=== PATIENT | female | born 1960 | race Caucasian/White ===

== ENCOUNTER 2020-10-29 19:28 | Emergency (ER) | payer OTHER, SELFPAY ==
[2020-10-29 19:41] VITALS: BP 146/93; PULSE 75; RESP 16; TEMP 36.6; O2SAT 97; BMI 31.7
--- NOTE | 2020-10-29 19:45 | XRR_ITS ---
PROCEDURE INFORMATION: Exam: XR Left Hand Exam date and time: 10/29/2020 8:13 PM Age: 60 years old Clinical indication: Injury or trauma; Other: Smashed; Crushing; Left; Little finger; Injury date: 10/29/20; Injury details: PT dropped a piece of wood on 5th digit TECHNIQUE: Imaging protocol: XR Left hand. Views: 3 or more views. COMPARISON: No relevant prior studies available. FINDINGS: Bones/joints: Comminuted displaced fracture through the distal tuft of the left 5th finger. The other bones are intact. Mild degenerative changes in the interphalangeal joints. Severe degenerative changes in the 1st carpometacarpal joint. Bandage material on the 5th finger. Soft tissues: Normal. XR/XR hand LT min 3V* [id number] IMPRESSION: Comminuted left 5th tuft fracture.
--- NOTE | 2020-10-29 20:13 | W.ED.EXTPRO ---
HPI - Extremity Problem General: Chief complaint: Extremity Injury, Upper Stated complaint: crushed finger Time Seen by Provider: 10/29/20 20:01 History of Present Illness: HPI Narrative: Patient is a 60-year-old female comes to the ED with a finger injury. Patient says she was lifting some on firewood earlier today and one rolled and smashed the tip of fifth digit on left hand. Nail is avulsed. Patient says she is not up-to-date on her tetanus. Patient says she is not in much pain and does not need any pain medications. Associated symptoms: Deny chest pain, fever(s) or rash Review of Systems Const: Denies: fever(s), chills or fatigue Eyes: Denies: change in vision or eye discomfort ENMT: Denies: throat pain, odynophagia, nasal discharge or nasal congestion Card: Denies: chest pain, palpitations, edema, swelling of feet/ankles, dyspnea on exertion or orthopnea Resp: Denies: dyspnea, productive cough or non-productive cough GI: Denies: abdominal pain, nausea, vomiting, diarrhea, constipation or hematochezia : Denies: flank pain, dysuria or hematuria Musc: Denies: neck pain, back pain or extremity swelling Skin/Breast: Reports: new lesions (Left hand fifth digit injury involving nailbed.); Denies: rash Neuro: Denies: headache(s), numbness in extremities or weakness in extremities Physical Exam Const: COMMON NORMALS: no acute distress, patient oriented x3 and alert GENERAL APPEARANCE: cooperative and comfortable HENMT: COMMON NORMALS: normocephalic HEAD & SCALP: normocephalic MOUTH: Normal oral and palatal mucosa present THROAT: posterior oropharynx normal and uvula midline Neck/C-Spine: COMMON NORMALS: supple GENERAL: Yes normal visual inspection Resp: COMMON NORMALS: normal respiratory effort, No retractions, No use of accessory muscles and clear to auscultation bilaterally AUSCULTATION: clear to auscultation bilaterally Cardio: COMMON NORMALS: regular rate, regular rhythm, S1 normal heart sound present, S2 normal heart sound present, No gallops present (Cardio), No clicks present (Cardio), No murmurs present (Cardio) and Peripheral pulses 2+ throughout RATE: regular rate RHYTHM: regular rhythm HEART SOUNDS: S1 normal heart sound present and S2 normal heart sound present PERIPHERAL PULSES: Peripheral pulses 2+ throughout GI: COMMON NORMALS: Normal to inspection, nondistended, normoactive bowel sounds present, Soft to palpation, non-tender and no masses PALPATION: Yes Soft to palpation : COMMON NORMALS: Yes no CVA tenderness BLADDER/KIDNEY EXAM: Yes no CVA tenderness Back/Pelvis: COMMON NORMALS: no CVA tenderness Extremity: GENERAL: Yes normal exam except as noted LEFT UPPER EXTREMITY: Yes hand & digits Left hand and digits: Yes inspection (Fifth digit?avulsion of nail with lac lateral edge of nail bed and paronych), Yes palpation (Tenderness on palpation of distal fingertip fifth digit.), Yes ROM (Full range of motion) and Yes neurovascular exam (Intact) Neuro: COMMON NORMALS: patient oriented x3 and moves all extremities SENSORIUM/ORIENTATION: Yes alert Skin: GENERAL SKIN EXAM: dry skin Procedures Laceration Laceration 1: Site: hand (5th digit) Side (If applicable): left Size (cm): 0.5 Description: other (avulsed nail with germinal matrix intact?2 sutures used to attach matrix to sulcus then 2 sutures for nailbed and paronychia black) Depth: simple, single layer Local Anesthetic: lidocaine 2% (Digital block) Amount of anesthesia used (mL): 10 Pre-repair: irrigated extensively (With normal saline.) Skin layer closed with: vicryl (Absorbable sutures used) Size (cm): 4-0 Number of sutures: 4 Technique: simple, interrupted and other (2 sutures used to attach nail matrix to the sulcus of nail. 2 sutures to close nailbed laceration and bronchiolitis) Nerve Block Nerve Block 1: Time out performed: Yes Local Anesthetic: lidocaine 2% Amount of anesthesia used (mL): 10 Side: left Nerve Blocks: digital (Fifth digit) Procedure Successful: Yes Patient Tolerated Procedure: well Complications: none Course Vital Signs: Vital signs: Vital Signs Temperature 97.9 F 10/29/20 19:41 Pulse Rate 64 10/29/20 22:34 Respiratory Rate 14 10/29/20 22:34 Blood Pressure 113/76 10/29/20 22:34 Pulse Oximetry 95 10/29/20 22:34 MDM - Extremity (Nontraumatic) MDM Narrative: Medical decision making narrative: Patient is a 60-year-old female comes to the ED with of smash injury to fingertip of fifth digit on left hand. Nail is avulsed. X-ray was performed and showed a tuft fracture and fifth digit of left hand. Nerve block on fifth digit was performed with lidocaine 2%. I irrigated the nail avulsion extensively with normal saline. I then used 2 absorbable sutures and attached the nail matrix to the sulcus. I also used 2 more absorbable sutures to repair lateral nailbed laceration. Patient was given updated tetanus shot. She was then bandaged and put in a finger splint. She was sent home with a prescription for cephalexin. In order with case management for patient to be referred to orthopedic doctor was made. Return to ED precautions given. Patient was instructed on how to care for laceration. Patient understood and agreed with plan. Imaging Data^: Xray Ortho: Attestation: I personally reviewed and interpreted this imaging study as follows: My impression: Left hand x-ray?minimally displaced tuft fracture of fifth digit. Discharge Plan Discharge Patient Disposition: Home Clinical Impression: Open fracture of tuft of distal phalanx of finger, Avulsion of nail Condition: Stable Prescriptions: New cephalexin 500 mg capsule 500 mg PO TID 5 Days Qty: 15 RF: 0 Discharge Orders: Discharge ED (Routine); Ordered 10/29/20 Ordered By: Basim Starr Discharge Diet: Regular Discharge Activity: Limit activity as instructed Patient Instructions: Finger Fracture (ED) Activity Restrictions/Additional Instructions: Follow-up with medical provider as directed. Leave bandage on and keep finger dry for the next 24 to 48 hours. Then you can remove bandage clean and rebandage daily. Wear finger splint to help allow for healing. Case management will be contacting you in the next several days set up appoint with orthopedic doctor. Take medications as prescribed. If you notice any signs of infection such as redness, warmth, puslike discharge return to the ED for reevaluation. Return to the ER or your medical provider if condition worsens. Please read and understand discharge instructions. If any questions, please ask. Coding Level of Care Code ED Message And Delivery Service Pricer for Daya [facility]wsumi Exam Comprehensive
[2020-10-29] MEDS: tetanus-dipt-pertussis 0.5 mL SDV IM (20:33)
[2020-10-29 22:34] VITALS: BP 113/76; PULSE 64; RESP 14; O2SAT 95
--- NOTE | 2020-11-02 08:34 | DCPLANNER ---
assistant store manager had message to schedule a follow up appointment for patient with ortho. assistant store manager called the ortho clinic, spoke with Shruthi, gave clinic patients information. assistant store manager was told that patients information would be printed and reviewed. Clinic will call patient with appointment information.
--- NOTE | 2020-11-17 10:15 | DCPLANNER ---
data systems manager called the ortho clinic to confirm that a followup appointment had been scheduled for patient. data systems manager spoke with Shruthi, was told that when patient was called to schedule a follow up appointment, that patient stated that she was doing good and did not want appointment at this time.
== END 2020-10-29 22:35 | disposition home or self-care (01) ==
PROVIDERS: Emergency Provider Physician Assistant
DX: S62.637B Displaced fracture of distal phalanx of left little finger, initial encounter for open fracture (principal); W23.0XXA Caught, crushed, jammed, or pinched between moving objects, initial encounter; Z23 Encounter for immunization
CPT/HCPCS: 11760; 12345; 73130; 90715; 99281; 99283

== ENCOUNTER 2024-11-27 12:44 | Outpatient (RCR) | payer OTHER, SELFPAY | END 2024-12-06 23:59 | disposition home or self-care (01) | LOC: SPT 12:44 | PROVIDERS: Visit Provider Orthopaedic Surgery | DX: S42.022D Displaced fracture of shaft of left clavicle, subsequent encounter for fracture with routine healing (principal); X58.XXXD Exposure to other specified factors, subsequent encounter | CPT/HCPCS: 97110; 97161 ==

== ENCOUNTER 2024-12-07 06:00 | Outpatient (RCR) | payer OTHER, SELFPAY | END 2025-01-03 23:59 | disposition home or self-care (01) | LOC: SPT 06:00 | PROVIDERS: Visit Provider Orthopaedic Surgery | DX: S42.022D Displaced fracture of shaft of left clavicle, subsequent encounter for fracture with routine healing (principal); X58.XXXD Exposure to other specified factors, subsequent encounter | CPT/HCPCS: 97110 ==

== ENCOUNTER 2025-01-04 06:30 | Outpatient (RCR) | payer OTHER, SELFPAY | END 2025-02-03 23:59 | disposition home or self-care (01) | LOC: SPT 06:30 | PROVIDERS: Visit Provider Orthopaedic Surgery | DX: S42.022D Displaced fracture of shaft of left clavicle, subsequent encounter for fracture with routine healing (principal); X58.XXXD Exposure to other specified factors, subsequent encounter | CPT/HCPCS: 97110 ==

== ENCOUNTER 2025-02-04 06:00 | Outpatient (RCR) | payer OTHER, SELFPAY | END 2025-02-17 10:20 | disposition home or self-care (01) | LOC: SPT 06:00 | PROVIDERS: Visit Provider Orthopaedic Surgery | DX: S42.022D Displaced fracture of shaft of left clavicle, subsequent encounter for fracture with routine healing (principal); X58.XXXD Exposure to other specified factors, subsequent encounter | CPT/HCPCS: 97110 ==